=== PATIENT | male | born 1985 | race African-American/Black ===

== ENCOUNTER 2019-01-13 20:09 | Emergency (ER) | payer BC ==
[~2019-01-13] VITALS: Ht 165.1 cm; Wt 64.0 kg
[2019-01-13 20:17] VITALS: Ht 165.1 cm; Wt 64.0 kg
[2019-01-13 22:21] VITALS: BP 144/92
[2019-01-15 08:06] LABS: RAPID PLASMA REAGIN Non Reactive (Non Reactive)
== END 2019-01-13 22:21 | disposition home or self-care (01) ==
LOC: ED 20:09
PROVIDERS: Emergency Medicine
DX: Z20.2 Contact with and (suspected) exposure to infections with a predominantly sexual mode of transmission (principal); I10 Essential (primary) hypertension
CPT/HCPCS: J0696